=== PATIENT | male | born 1940 | race Caucasian/White ===

== ENCOUNTER → 2018-09-20 | Outpatient (CLI) | payer MEDICARE, MEDICAID ==
[~2018-09-20] MED LIST: ALLO100T30 PO; ALLO300T PO; AMLO-150 PO; ATORVASTATIN; BENA1TAB11 PO; DONE5TAB7 PO; DOXA8TAB63 PO; FINA5TAB4 PO; MULTIVITAMIN; PRAV80TA2 PO
[2018-09-20 13:39] LABS: ALANINE AMINOTRANSFERASE 50 U/L (12-78); ALBUMIN 3.4 g/dL (3.4-5.0); ANION GAP 9 mmol/L (5-15); CALCIUM 8.7 mg/dL (8.5-10.1); CHLORIDE 104 mmol/L (98-107)
[2018-09-20 13:42] LABS: ALKALINE PHOSPHATASE 78 U/L (45-117); BILIRUBIN,TOTAL 0.5 mg/dL (0.2-1.0); CREATININE 0.64 mg/dL (0.7-1.3); TOTAL PROTEIN 6.9 g/dL (6.4-8.2)
== END | disposition home or self-care (01) ==
LOC: STAR 12:33
PROVIDERS: ATTEND Thoracic Surgery (Cardiothoracic Vascular Surgery)
DX: Z01.818 Encounter for other preprocedural examination (principal); K40.90 Unilateral inguinal hernia, without obstruction or gangrene, not specified as recurrent; I45.10 Unspecified right bundle-branch block
CPT/HCPCS: 36415; 80053; 93005

== ENCOUNTER → 2018-09-22 | Outpatient (CLI) | payer MEDICARE, MEDICAID ==
[~2018-09-22] MED LIST changes: +MAGNESIUM PO; +MULT-658 PO; +UBID100C41 PO; +VITA1TAB19 PO
== END | disposition home or self-care (01) ==
LOC: CFH 09:55
PROVIDERS: ATTEND Internal Medicine Cardiovascular Disease
DX: I08.3 Combined rheumatic disorders of mitral, aortic and tricuspid valves (principal); I25.119 Atherosclerotic heart disease of native coronary artery with unspecified angina pectoris; I10 Essential (primary) hypertension
CPT/HCPCS: 93306

== ENCOUNTER 2018-09-27 11:32 | Day surgery (SDC) | payer MEDICARE, MEDICAID ==
[2018-09-20 13:03] VITALS: BP 122/79
[~2018-09-27] VITALS: Ht 172.7 cm; Wt 63.4 kg
[~2018-09-27 11:32] MED LIST changes: -MAGNESIUM PO; -MULT-658 PO; -UBID100C41 PO; -VITA1TAB19 PO
[2018-09-27] MEDS ORDERED: LACTATED RINGERS 1,000 ML IV SCH ×2 (11:58→15:06)
[2018-09-27] MEDS ORDERED: ACETAMINOPHEN 500 MG TABLET PO ONE (12:00)
[2018-09-27] MEDS ORDERED: ONDANSETRON ODT 8 MG PO ONE (12:00)
[2018-09-27] MEDS ORDERED: VITA1TAB19 PO (12:18)
[2018-09-27] MEDS ORDERED: UBID100C41 PO (12:18)
[2018-09-27] MEDS ORDERED: MULT-658 PO (12:18)
[2018-09-27] MEDS ORDERED: MAGNESIUM PO (12:18)
[2018-09-27 12:19] VITALS: BP 122/79
[2018-09-27] MEDS ORDERED: FENTANYL PF 100 MCG/2ML ONE ×2 (13:30→15:19)
[2018-09-27] MEDS ORDERED: MIDAZOLAM 1 MG/ML, 2ML ONE (13:30)
[2018-09-27] MEDS ORDERED: PROPOFOL 10 MG/ML, 20ML ONE (13:34)
[2018-09-27] MEDS ORDERED: ROCURONIUM 10MG/ML,5ML ONE (13:34)
[2018-09-27] MEDS ORDERED: NEOSTIGMINE 1 MG/ML, 10ML ONE (13:34)
[2018-09-27] MEDS ORDERED: CEFAZOLIN 1,000 MG ONE (13:34)
[2018-09-27] MEDS ORDERED: GLYCOPYRROLATE 0.2MG/1ML, 5ML ONE (13:34)
[2018-09-27] MEDS ORDERED: LIDOCAINE 2% 100MG/5ML SYRINGE ONE (13:34)
[2018-09-27] MEDS ORDERED: LORazepam 2 MG/ML, 1ML IVPush PRN (14:00)
[2018-09-27] MEDS ORDERED: ONDANSETRON 2MG/ML, 2ML IV PRN (14:00)
[2018-09-27] MEDS ORDERED: OXYcodone 5 MG/5 ML ORAL.SOL UDC PO PRN (14:00)
[2018-09-27] MEDS ORDERED: FENTANYL PF 100 MCG/2ML IV PRN (14:00)
[2018-09-27] MEDS ORDERED: HYDROmorphone 2 MG/ML, 1ML IVPush PRN (14:00)
[2018-09-27] MEDS ORDERED: BUPIVACAINE/EPI 0.5% 1:200K INFIL ONE (14:26)
[2018-09-27] MEDS ORDERED: OXYcodone 5 MG/5 ML ORAL.SOL UDC ONE ×2 (15:19)
[2018-09-27] MEDS ORDERED: LORazepam 2 MG/ML, 1ML ONE (15:25)
[2018-09-27] MEDS ORDERED: HYDROcodone/APAP 5/325 TABLET PO PRN (15:30)
[2018-09-27] MEDS ORDERED: ONDANSETRON 2MG/ML, 2ML IVPush PRN (15:30)
[2018-09-27] MEDS ORDERED: morphine SULFATE 10 MG/ML, 1ML IVPush PRN (15:30)
== END 2018-09-27 18:35 | disposition home or self-care (01) ==
LOC: OUT 11:32 → UNDOADMOB 15:06 → ORIP 15:06 → UNDODISOB 18:35 → 4EST 09-28 11:44 → ORIP 09-28 11:44
PROVIDERS: ATTEND Thoracic Surgery (Cardiothoracic Vascular Surgery)
DX: K40.90 Unilateral inguinal hernia, without obstruction or gangrene, not specified as recurrent (principal); I10 Essential (primary) hypertension; E78.5 Hyperlipidemia, unspecified; F17.210 Nicotine dependence, cigarettes, uncomplicated; E78.2 Mixed hyperlipidemia; I25.119 Atherosclerotic heart disease of native coronary artery with unspecified angina pectoris; N40.0 Benign prostatic hyperplasia without lower urinary tract symptoms
CPT/HCPCS: 49650; C1781; J0690; J2060; J2250; J2704; J2710; J3010; J7120; Q0162; G0378

== ENCOUNTER → 2018-10-10 | Outpatient (CLI) | payer MEDICARE, MEDICAID ==
[~2018-10-10] MED LIST changes: +MAGNESIUM PO; +MULT-658 PO; +UBID100C41 PO; +VITA1TAB19 PO
== END | disposition home or self-care (01) ==
LOC: CFH 13:41
PROVIDERS: ATTEND Family Medicine
DX: M13.852 Other specified arthritis, left hip (principal)

== ENCOUNTER 2019-04-11 09:30 | Outpatient (CLI) | payer MEDICARE, MEDICAID ==
[2019-04-11 13:22] LABS: CHLORIDE 107 mmol/L (98-107)
[2019-04-11 13:30] LABS: ALANINE AMINOTRANSFERASE 18 U/L (12-78); ALBUMIN 3.1 g/dL (3.4-5.0); ALKALINE PHOSPHATASE 81 U/L (45-117); ANION GAP 7 mmol/L (5-15); BILIRUBIN,TOTAL 0.8 mg/dL (0.2-1.0); CALCIUM 8.5 mg/dL (8.5-10.1); CHOL/HDL RATIO 2.5; CHOLESTEROL, TOTAL 203 mg/dL (140-239); CREATININE 0.67 mg/dL (0.7-1.3); HDL CHOL % 40 % (26-37); HDL CHOLESTEROL (DIRECT) 82 mg/dL (40-60); LDL CHOLESTEROL,CALCULATED 109 mg/dL (54-169); LDL/HDL RATIO 1.3 (0.5-3.0); TOTAL PROTEIN 6.5 g/dL (6.4-8.2); TRIGLYCERIDES 60 mg/dL (50-200); VLDL CHOLESTEROL 12 mg/dL (0-25)
== END 2019-04-11 23:59 | disposition home or self-care (01) ==
LOC: CFH 09:30
PROVIDERS: ATTEND Internal Medicine Cardiovascular Disease
DX: E78.5 Hyperlipidemia, unspecified (principal); I25.119 Atherosclerotic heart disease of native coronary artery with unspecified angina pectoris
CPT/HCPCS: 36415; 80053; 80061

== ENCOUNTER 2020-07-12 21:40 | Inpatient (IN) | payer MEDICAID, MEDICARE ==
[~2020-07-12] VITALS: Ht 172.7 cm; Wt 65.1 kg
--- NOTE | 2020-07-12 21:54 | NUR ---
PT BIB [facility] TO ROOM 39, CHIEF COMPLAINT OF HYPOTENSION. Pts roommate states he passed our or was not coherent at home, and called ems. pt brought in, but is not happy to be brought in. says his roommate freaked out. Pts blood pressure on arrival was 78/42. placed on cr monitor, and iv pre existing per ems 20g to right ac with 300ml of NS infused so far. In ER 200ml more of NS infused, and new piv started to the left forearm, 18g x1, with NS fluids started, and ems fluids stopped. pt to received a total of 1 liter of fluids then re evaluate, per MD.
--- NOTE | 2020-07-12 21:57 | NUR ---
pattern technician to bedside to complete EKG.
[2020-07-12] MEDS ORDERED: SODIUM CHLORIDE 0.9% 1,000ML IVBOLUS ONE (22:00)
--- NOTE | 2020-07-12 22:13 | NUR ---
ivf NS 1 liter completed infusing. pts bp has increased. breath sounds remain clear at this time, o2 sats are 97% on 2l nc. pt a&ox4, calm and cooperative. denies feeling cold at this time, and is resting in position of comfort.
[2020-07-12 23:03] LABS: BASOPHILS % (AUTO) 0 % (0-1); EOSINOPHILS % (AUTO) 1 % (1-7); LYMPHOCYTES % (AUTO) 18 % (22-44); MEAN CORPUSCULAR HGB CONC 33.7 g/dL (33.2-36.2); MEAN PLATELET VOLUME 8.4 fL (7.4-10.4); MONOCYTES % (AUTO) 8 % (2-9); NEUTROPHILS % (AUTO) 72 % (42-75); PLATELET COUNT 117 x10^3/uL (130-400); RED BLOOD COUNT 3.11 x10^6/uL (4.38-5.82); RED CELL DISTRIBUTION WIDTH 14.7 % (9.4-14.8)
[2020-07-12 23:05] LABS: ALANINE AMINOTRANSFERASE 24 U/L (12-78); ALBUMIN 2.6 g/dL (3.4-5.0); ANION GAP 14 mmol/L (5-15); CALCIUM 7.6 mg/dL (8.5-10.1); CHLORIDE 109 mmol/L (98-107); CREATININE 0.59 mg/dL (0.7-1.3)
[2020-07-12 23:09] LABS: ALKALINE PHOSPHATASE 87 U/L (45-117); BILIRUBIN,TOTAL 1.2 mg/dL (0.2-1.0); TOTAL PROTEIN 5.7 g/dL (6.4-8.2); TROPONIN I 0.016 ng/mL (0.000-0.045)
--- NOTE | 2020-07-12 23:38 | NUR ---
pt sitting at end of bed saying he has to go to the bathroom, and has his urinal in hand. pt assited to bathroom use, and had about 200ml uop. notified and sent to lab for tests. pt a&ox4. good bp, remains on cr monitor, and iv sites intact x2 and no swelling or redness.
[2020-07-12 23:40] LABS: MD SCAN
--- NOTE | 2020-07-12 23:52 | NUR ---
pt wheeled to CT for a scan. a&ox4.
[2020-07-13] MEDS ORDERED: CEFTRIAXONE PMX 1GM/50ML 50 ML IV ONE
[2020-07-13] MEDS ORDERED: CEFTRIAXONE PMX 1GM/50ML 50 ML ONE (00:04)
[2020-07-13 00:16] LABS: MICROSCOPIC INDICATED
--- NOTE | 2020-07-13 00:16 | NUR ---
pt once again moved himself to the foot of the bed without calling for assistance, and then stood up to try and urinate. pt reoriented to the need to call RN for assistance, and assited in elimination of urine. approx 350ml out. dark wili colored urine. pt placed back in bed and on cr monitor.
--- NOTE | 2020-07-13 00:39 | NUR ---
pt placed in position of comfort. on cr monitor, and o2 sat having difficulty in showing actual o2 sat. pt on 2L nc, good aeration and oxygenation. piv to left forearm flushed, and iv antibiotics started. pt tolerating well, and no acute distress at this time.
[2020-07-13] MEDS ORDERED: CIPROFLOXACIN/PMX 400MG/200ML 200 ML ONE (01:12)
[2020-07-13] MEDS ORDERED: METRONIDAZOLE PMX 500MG/100ML 100 ML ONE (01:12)
[2020-07-13] MEDS ORDERED: CIPROFLOXACIN/PMX 400MG/200ML 200 ML IVPB ONE (01:30)
[2020-07-13] MEDS ORDERED: METRONIDAZOLE PMX 500MG/100ML 100 ML IV ONE (01:30)
--- NOTE | 2020-07-13 01:36 | NUR ---
antibiotics hung to run over 1 hour. pt tolerating well, resting in bed, with eyes covered, and on cr monitor, no acute distress at this time. siderails up, call light within reach, and pt advised to call for assistance if he needs to get up or to use the urinal. to be admitted.
--- NOTE | 2020-07-13 01:56 | NUR ---
report called to Sylvia RN and pt to be transferred to floor as soon as possible.
[2020-07-13] MEDS ORDERED: POTASSIUM CHLORIDE 20 MEQ, MAGNESIUM SULFATE 2 GM, THIAMINE 200 MG, FOLIC ACID 1 MG in ... IV SCH (02:00)
[2020-07-13] MEDS ORDERED: LACTATED RINGERS 1,000 ML IV ONE (02:00)
[2020-07-13] MEDS ORDERED: POTASSIUM CHLORIDE 20 MEQ TAB.ER.PRT PO ONE (02:00)
[2020-07-13] MEDS: ENOXAPARIN 40 MG/0.4 ML SQ SCH (02:00)
[2020-07-13] MEDS ORDERED: GABAPENTIN 300 MG CAPSULE PO PRN (02:00)
[2020-07-13] MEDS ORDERED: CEFTRIAXONE PMX 1GM/50ML 50 ML IV SCH (02:00)
[2020-07-13] MEDS ORDERED: LABETALOL 5MG/ML, 20ML IVPush PRN (02:00)
[2020-07-13] MEDS ORDERED: ACETAMINOPHEN 325 MG TABLET PO PRN (02:00)
[2020-07-13] MEDS ORDERED: ONDANSETRON 2MG/ML, 2ML IVPush PRN (02:00)
[2020-07-13 02:26] VITALS: BP 112/73
[2020-07-13] MEDS: METRONIDAZOLE PMX 500MG/100ML 100 ML IV SCH ×4 (03:23→20:56)
[2020-07-13 06:12] LABS: AMPHETAMINE SCREEN, URINE Negative (Negative); BARBITURATE SCREEN, URINE Negative (Negative); BENZODIAZEPINE SCREEN, URINE Negative (Negative); CANNABINOID SCREEN, URINE Positive (Negative); COCAINE SCREEN, URINE Negative (Negative); METHADONE SCREEN, URINE Negative (Negative); OPIATE SCREEN, URINE Negative (Negative)
[2020-07-13 07:40] VITALS: BP 152/91
[2020-07-13] MEDS ORDERED: CHLORDIAZEPOXIDE 25 MG CAPSULE PO PRN ×3 (08:30)
[2020-07-13] MEDS: metroNIDAZOLE 500 MG TABLET PO SCH ×3 (09:33→23:01)
[2020-07-13] MEDS: MULTIVITAMIN 1 TABLET PO SCH (09:34)
[2020-07-13] MEDS: FINASTERIDE 5 MG TABLET PO SCH (09:34)
[2020-07-13] MEDS: DONEPEZIL 5 MG TABLET PO SCH (09:34)
[2020-07-13] MEDS: DOXAZOSIN 2MG TABLET PO SCH (09:34)
[2020-07-13] MEDS: THIAMINE 100MG TABLET PO SCH (09:34)
[2020-07-13] MEDS: ALLOPURINOL 100 MG TABLET PO SCH (09:34)
[2020-07-13] MEDS: FOLIC ACID 1 MG TABLET PO SCH (09:34)
[2020-07-13] MEDS: CEFTRIAXONE PMX 2GM/50ML 50 ML IVPB SCH (12:41)
[2020-07-13] MEDS ORDERED: CARB1TAB22 PO (12:56)
[2020-07-13 13:11] VITALS: BP 101/64
[2020-07-13] MEDS: CHLORDIAZEPOXIDE 10 MG CAPSULE PO PRN ×2 (14:07→23:01)
[2020-07-13] MEDS: CARBIDOPA/LEVODOPA 25 MG/100 MG TABLET PO SCH ×2 (15:43→20:56)
[2020-07-13 19:56] VITALS: BP 116/70
[2020-07-13] MEDS: PRAVASTATIN 40 MG TABLET PO SCH (20:56)
[2020-07-13 23:38] LABS: CLOSTRIDIUM DIFFICILE ANTIGEN NEGATIVE; CLOSTRIDIUM DIFFICILE TOXIN NEGATIVE (Negative)
[2020-07-14 01:44] VITALS: BP 142/83
[2020-07-14] MEDS: ENOXAPARIN 40 MG/0.4 ML SQ SCH (02:00)
[2020-07-14] MEDS: METRONIDAZOLE PMX 500MG/100ML 100 ML IV SCH (02:39)
[2020-07-14 04:34] LABS: BASOPHILS % (AUTO) 0 % (0-1); EOSINOPHILS % (AUTO) 1 % (1-7); LYMPHOCYTES % (AUTO) 23 % (22-44); MEAN CORPUSCULAR HEMOGLOBIN 35.2 pg (27.5-34.5); MEAN CORPUSCULAR HGB CONC 34.5 g/dL (33.2-36.2); MEAN PLATELET VOLUME 8.3 fL (7.4-10.4); MONOCYTES % (AUTO) 14 % (2-9); NEUTROPHILS % (AUTO) 62 % (42-75); PLATELET COUNT 151 x10^3/uL (130-400)
[2020-07-14 04:43] LABS: ALBUMIN 2.5 g/dL (3.4-5.0); ANION GAP 12 mmol/L (5-15); CHLORIDE 105 mmol/L (98-107); MD NO
[2020-07-14 04:46] LABS: ALANINE AMINOTRANSFERASE 25 U/L (12-78); ALKALINE PHOSPHATASE 78 U/L (45-117); BILIRUBIN,TOTAL 1.3 mg/dL (0.2-1.0); CREATININE 0.58 mg/dL (0.7-1.3); TOTAL PROTEIN 5.3 g/dL (6.4-8.2)
[2020-07-14 06:57] VITALS: BP 165/93
[2020-07-14] MEDS ORDERED: POTASSIUM CHLORIDE 20 MEQ TAB.ER.PRT PO ONE (08:30)
[2020-07-14] MEDS ORDERED: MAGNESIUM SULFATE PMX 4GM/100M 100 ML IVPB ONE (08:30)
[2020-07-14] MEDS: DONEPEZIL 5 MG TABLET PO SCH (10:01)
[2020-07-14] MEDS: MULTIVITAMIN 1 TABLET PO SCH (10:01)
[2020-07-14] MEDS: THIAMINE 100MG TABLET PO SCH (10:02)
[2020-07-14] MEDS: ALLOPURINOL 100 MG TABLET PO SCH (10:03)
[2020-07-14] MEDS: AMLODIPINE 5 MG TABLET PO SCH (10:03)
[2020-07-14] MEDS: DOXAZOSIN 2MG TABLET PO SCH (10:03)
[2020-07-14] MEDS: FINASTERIDE 5 MG TABLET PO SCH (10:04)
[2020-07-14] MEDS: FOLIC ACID 1 MG TABLET PO SCH (10:04)
[2020-07-14] MEDS: BENAZEPRIL 20 MG TABLET PO SCH (10:04)
[2020-07-14] MEDS: metroNIDAZOLE 500 MG TABLET PO SCH ×2 (10:04→16:58)
[2020-07-14] MEDS: CARBIDOPA/LEVODOPA 25 MG/100 MG TABLET PO SCH ×3 (10:17→21:01)
[2020-07-14 12:28] VITALS: BP 112/72
[2020-07-14] MEDS: CEFTRIAXONE PMX 2GM/50ML 50 ML IVPB SCH (13:08)
[2020-07-14] MEDS ORDERED: POTASSIUM PHOSPHATE 44 MEQ in SODIUM CHLORIDE 0.9% 500 ML IV ONE (13:30)
[2020-07-14 19:55] VITALS: BP 129/86
[2020-07-14] MEDS: PRAVASTATIN 40 MG TABLET PO SCH (21:01)
[2020-07-15] MEDS: metroNIDAZOLE 500 MG TABLET PO SCH ×3 (00:03→16:48)
[2020-07-15 02:06] VITALS: BP 170/97
[2020-07-15] MEDS: ENOXAPARIN 40 MG/0.4 ML SQ SCH (02:44)
[2020-07-15 05:21] LABS: ALANINE AMINOTRANSFERASE 26 U/L (12-78); ALBUMIN 2.4 g/dL (3.4-5.0); ANION GAP 10 mmol/L (5-15); CALCIUM 7.8 mg/dL (8.5-10.1); CHLORIDE 110 mmol/L (98-107); CREATININE 0.43 mg/dL (0.7-1.3)
[2020-07-15 05:23] LABS: ALKALINE PHOSPHATASE 75 U/L (45-117); BILIRUBIN,TOTAL 0.9 mg/dL (0.2-1.0); TOTAL PROTEIN 5.1 g/dL (6.4-8.2)
[2020-07-15 07:21] VITALS: BP 158/107
[2020-07-15] MEDS: AMLODIPINE 5 MG TABLET PO SCH (08:17)
[2020-07-15] MEDS: ALLOPURINOL 100 MG TABLET PO SCH (08:17)
[2020-07-15] MEDS: CARBIDOPA/LEVODOPA 25 MG/100 MG TABLET PO SCH ×3 (08:17→20:50)
[2020-07-15] MEDS: BENAZEPRIL 20 MG TABLET PO SCH (08:17)
[2020-07-15] MEDS: DONEPEZIL 5 MG TABLET PO SCH (08:17)
[2020-07-15] MEDS: THIAMINE 100MG TABLET PO SCH (08:17)
[2020-07-15] MEDS: MULTIVITAMIN 1 TABLET PO SCH (08:17)
[2020-07-15] MEDS: DOXAZOSIN 2MG TABLET PO SCH (08:17)
[2020-07-15] MEDS: FOLIC ACID 1 MG TABLET PO SCH (08:17)
[2020-07-15] MEDS: FINASTERIDE 5 MG TABLET PO SCH (08:19)
[2020-07-15 12:14] VITALS: BP 143/91
[2020-07-15] MEDS: CEFTRIAXONE PMX 2GM/50ML 50 ML IVPB SCH (12:26)
[2020-07-15] MEDS: ENOXAPARIN 60 MG/0.6 ML SQ SCH (18:00)
[2020-07-15] MEDS ORDERED: DILTIAZEM 5 MG/ML, 5ML IVPush PRN (18:00)
[2020-07-15] MEDS: Enoxaparin 1 mg/kg protocol SQ SCH (18:00)
[2020-07-15 18:21] VITALS: BP 115/80
[2020-07-15] MEDS: METOPROLOL TARTRATE 25 MG TAB PO SCH (18:22)
[2020-07-15 19:28] VITALS: BP 108/70
[2020-07-15] MEDS: PRAVASTATIN 40 MG TABLET PO SCH (20:50)
[2020-07-16] MEDS: metroNIDAZOLE 500 MG TABLET PO SCH ×2 (00:02→09:41)
[2020-07-16 00:26] LABS: TROPONIN I 0.034 ng/mL (0.000-0.045)
[2020-07-16 00:48] VITALS: BP 163/85
[2020-07-16] MEDS: METOPROLOL TARTRATE 25 MG TAB PO SCH ×2 (03:27→09:41)
[2020-07-16 05:45] LABS: ANION GAP 10 mmol/L (5-15); CHLORIDE 106 mmol/L (98-107); CREATININE 0.49 mg/dL (0.7-1.3)
[2020-07-16 05:46] LABS: BASOPHILS % (AUTO) 1 % (0-1); EOSINOPHILS % (AUTO) 1 % (1-7); LYMPHOCYTES % (AUTO) 29 % (22-44); MEAN CORPUSCULAR HEMOGLOBIN 35.1 pg (27.5-34.5); MEAN CORPUSCULAR HGB CONC 34.4 g/dL (33.2-36.2); MEAN PLATELET VOLUME 8.6 fL (7.4-10.4); MONOCYTES % (AUTO) 17 % (2-9); NEUTROPHILS % (AUTO) 53 % (42-75); PLATELET COUNT 178 x10^3/uL (130-400); RED BLOOD COUNT 3.05 x10^6/uL (4.38-5.82); RED CELL DISTRIBUTION WIDTH 14.3 % (9.4-14.8)
[2020-07-16 05:48] LABS: MD NO
[2020-07-16] MEDS: ENOXAPARIN 60 MG/0.6 ML SQ SCH (05:58)
[2020-07-16] MEDS: Enoxaparin 1 mg/kg protocol SQ SCH (06:00)
[2020-07-16 06:20] VITALS: BP 133/82
[2020-07-16] MEDS: THIAMINE 100MG TABLET PO SCH (09:40)
[2020-07-16] MEDS: FINASTERIDE 5 MG TABLET PO SCH (09:40)
[2020-07-16] MEDS: DOXAZOSIN 2MG TABLET PO SCH (09:40)
[2020-07-16] MEDS: MULTIVITAMIN 1 TABLET PO SCH (09:40)
[2020-07-16] MEDS: CARBIDOPA/LEVODOPA 25 MG/100 MG TABLET PO SCH (09:41)
[2020-07-16] MEDS: AMLODIPINE 5 MG TABLET PO SCH (09:41)
[2020-07-16] MEDS: FOLIC ACID 1 MG TABLET PO SCH (09:41)
[2020-07-16] MEDS: BENAZEPRIL 20 MG TABLET PO SCH (09:41)
[2020-07-16] MEDS: DONEPEZIL 5 MG TABLET PO SCH (09:41)
[2020-07-16] MEDS: ALLOPURINOL 100 MG TABLET PO SCH (09:41)
[2020-07-16] MEDS ORDERED: CEFT2FRO2 IVPB (10:59)
[2020-07-16] MEDS ORDERED: METO25TA35 PO (10:59)
[2020-07-16] MEDS ORDERED: ACET325T26 PO (10:59)
[2020-07-16] MEDS ORDERED: METR500T PO (10:59)
[2020-07-16] MEDS ORDERED: ENOX40SY4 SQ (10:59)
[2020-07-16 12:05] VITALS: BP 148/86
[2020-07-16] MEDS ORDERED: GUAIFENESIN ER 600 MG TABLET PO SCH (21:00)
[2020-07-17] MEDS ORDERED: ENOXAPARIN 40 MG/0.4 ML SQ SCH (06:00)
== END 2020-07-16 16:11 | DRG 392 ==
LOC: ED 23:03 → EDIP 07-13 01:44 → 4WST 07-13 02:35
PROVIDERS: ADMIT Family Medicine; ATTEND Hospitalist
PROC: 0T9B70Z Drainage of Bladder with Drainage Device, Via Natural or Artificial Opening (ICD-10-PCS; principal; 2020-07-12)
DX: K57.32 Diverticulitis of large intestine without perforation or abscess without bleeding (principal); I50.32 Chronic diastolic (congestive) heart failure; E87.2 Acidosis; I48.91 Unspecified atrial fibrillation; G20 Parkinson's disease; E87.6 Hypokalemia; D53.9 Nutritional anemia, unspecified; D18.03 Hemangioma of intra-abdominal structures; D35.02 Benign neoplasm of left adrenal gland; D75.89 Other specified diseases of blood and blood-forming organs; Z66 Do not resuscitate; R53.81 Other malaise; E78.5 Hyperlipidemia, unspecified; E86.9 Volume depletion, unspecified; F02.80 Dementia in other diseases classified elsewhere, unspecified severity, without behavioral disturbance, psychotic disturbance, mood disturbance, and anxiety; F10.10 Alcohol abuse, uncomplicated; I11.0 Hypertensive heart disease with heart failure; I95.1 Orthostatic hypotension; N20.0 Calculus of kidney; N40.0 Benign prostatic hyperplasia without lower urinary tract symptoms
CPT/HCPCS: 36415; 71045; 74177; 80048; 80053; 80307; 80320; 81001; 82607; 83605; 83735; 83880; 84100; 84443; 84484; 85025; 87040; 87324; 93005; 93306; 96365; 96375; 99291; G0378; J0696; J1650; J3411; J3475; J3480; J7042; G0480; J7030; J7040; J7120